=== PATIENT | female | born 1995 | race Caucasian/White ===

== ENCOUNTER → 2018-08-01 | Emergency (ER) | payer OTHER ==
[~2018-08-01] VITALS: Ht 167.6 cm; Wt 70.8 kg
[~2018-08-01] MED LIST: KEFLEX500 MG PO; MUCINEX DM ER1 EAC1 PO; OSEL75CA PO
== END ==
LOC: ER 21:01
DX: J06.9 Acute upper respiratory infection, unspecified (principal); J09.X2 Influenza due to identified novel influenza A virus with other respiratory manifestations; N39.0 Urinary tract infection, site not specified

== ENCOUNTER 2018-12-30 06:55 | Inpatient (IN) | payer OTHER ==
[~2018-12-30] VITALS: Ht 165.1 cm; Wt 80.7 kg
[2018-12-30] MEDS ORDERED: PRENATAL TABLE1 EAC1 PO (09:05)
[2018-12-30] MEDS ORDERED: SYNTHROID50 MCG PO (09:05)
== END 2019-01-02 11:55 | disposition home or self-care (01) | DRG 788 ==
LOC: LDR 06:55 → OB/GYN 23:29
PROVIDERS: ADMIT Obstetrics & Gynecology
PROC: 10907ZC Drainage of Amniotic Fluid, Therapeutic from Products of Conception, Via Natural or Artificial Opening (ICD-10-PCS; 2018-12-30)
PROC: 3E0P7VZ Introduction of Hormone into Female Reproductive, Via Natural or Artificial Opening (ICD-10-PCS; 2018-12-30)
PROC: 3E033VJ Introduction of Other Hormone into Peripheral Vein, Percutaneous Approach (ICD-10-PCS; 2018-12-30)
PROC: 4A1HXCZ Monitoring of Products of Conception, Cardiac Rate, External Approach (ICD-10-PCS; 2018-12-30)
PROC: 10D00Z1 Extraction of Products of Conception, Low, Open Approach (ICD-10-PCS; principal; 2018-12-30 20:00)
DX: O61.0 Failed medical induction of labor (principal); O65.4 Obstructed labor due to fetopelvic disproportion, unspecified; Z3A.39 39 weeks gestation of pregnancy; Z37.0 Single live birth; Z22.330 Carrier of Group B streptococcus